=== PATIENT | male | born 1980 | race Caucasian/White ===

== ENCOUNTER 2018-11-06 17:38 | Emergency (ER) | payer BC ==
[2018-11-06] MEDS ORDERED: NA CHLORIDE 0.9% 1,000 ML ONE ×2 (18:16→19:18)
[2018-11-06 18:33] LABS: Absolute Lymphocytes (CBC) 1.5 K/uL (0.7-4.9); Basophils % 0.7 % (0-1.3); Eosinophils % 0.2 % (0-4.4); Hematocrit 51.3 % (39.6-49.0); Lymphocytes % 16.8 % (15.3-44.8); MPV 8.9 fL (7.6-11.3); Monocytes % 5.1 % (3.3-12.3); RBC Red Blood Cell Count 5.63 M/uL (4.33-5.43)
--- NOTE | 2018-11-06 18:39 | RAD REPORT ---
EXAM DESCRIPTION: CT - Stone Protocol - 11/06/2018 6:21 pm CLINICAL HISTORY: Left-sided flank pain COMPARISON: None. TECHNIQUE: Axial 5 mm thick images were obtained without oral or IV contrast. The [id number] span s the entirety of the system including uppermost abdomen and lung bases. All CT scans are performed using dose optimization technique as appropriate and may include automated exposure control or mA/KV adjustment according to patient size. FINDINGS: Mild left-sided hydronephrosis is present secondary to a 7 mm UPJ calculus. On a KUB proje ction the stone is in proximity to the left transverse process at L3. More distally the left ureter i s decompressed with no additional stone. Patient has a 4 mm calcification lower pole calyx on the lef t. Patient has a 5 mm calcification lower pole calyx on the right. There is a 2 centimeter round low- attenuation mass in the lateral mid right kidney that is most likely a cyst but not fully characteriz ed on noncontrast study. No suspicious renal masses. Isodense masses and pyelonephritis are not excluded on a stone protocol CT scan. No urinary bladder suspicious finding. No significant adrenal finding. Imaged portions of the liver, spleen and pancreas show no suspicious findings on non-contrast imaging . No gallbladder or biliary tree abnormality identified. No suspicious bowel findings. No hernia, mass or bulky lymphadenopathy noted. No free air, free fluid or inflammatory stranding. No significant bony abnormality. IMPRESSION: Mild left-sided hydronephrosis of the pelvis and calices secondary to a 7 mm UPJ calculu s. On a KUB projection the obstructing stone is in proximity to the L3 left transverse process. Bilateral lower pole nonobstructing calyx calculi. Isodense masses and pyelonephritis are not excluded on stone protocol technique.
[2018-11-06 18:46] LABS: Albumin 4.4 g/dL (3.4-5.0); Bilirubin Direct 0.2 mg/dL (0-0.2); Bilirubin Total 1.4 mg/dL (0.2-1.0); Potassium 4.4 mmol/L (3.5-5.1); Protein, Total 8.2 g/dL (6.4-8.2)
[2018-11-06] MEDS ORDERED: CIPROFLOXACIN HCL 500 MG TAB ONE (19:18)
[2018-11-06] MEDS ORDERED: TAMSULOSIN 0.4 MG SR CAP ONE (19:18)
[2018-11-06] MEDS ORDERED: KETOROLAC 30 MG/ML INJ ONE (19:18)
[2018-11-06 19:39] LABS: Urine Yeast MANY (NONE SEEN)
[2018-11-06 19:40] LABS: Urine RBC >50 /HPF (NONE SEEN)
[2018-11-06 19:41] LABS: Urine Bacteria <20 /HPF (NONE SEEN); Urine Culture Reflex Order REFLEXED
--- NOTE | 2018-11-06 20:04 | EDPHYS ---
Physician Documentation [facility] Name: Alban Bundy Age: 38 yrs Sex: Male : 1980 Arrival Date: 11/06/2018 Time: 17:40 Bed 18 Private MD: ED Physician Phillip Masters HPI: 11/06 17:56 This 38 yrs old Male presents to ER via EMS with complaints of Left Flank pm1 Pain. 17:56 The patient complains of pain in the left low back. The pain radiates to the left pm1 testicle. Onset: The symptoms/episode began/occurred 1 hour(s) ago. Modifying factors: The symptoms are alleviated by nothing. the symptoms are aggravated by nothing. Associated signs and symptoms: Pertinent positives: nausea resolved, Pertinent negatives: fever, urinary frequency. Severity of pain: in the emergency department the pain has resolved and did so just prior to arrival. The patient has experienced similar episodes in the past, a few times, history of kidney stones in the past . The patient has not recently seen a physician. Historical: - Allergies: 17:45 No Known Allergies; em - Home Meds: 17:45 Cialis oral oral [Active]; em - PMHx: 17:45 Kidney stones; em - Immunization history:: Adult Immunizations up to date. - Social history:: Smoking status: Patient/guardian denies using tobacco. - Ebola Screening: : Patient negative for fever greater than or equal to 101.5 degrees Fahrenheit, and additional compatible Ebola Virus Disease symptoms Patient denies exposure to infectious person Patient denies travel to an Ebola-affected area in the 21 days before illness onset No symptoms or risks identified at this time. ROS: 17:56 Constitutional: Negative for fever, chills, and weight loss, Eyes: Negative for injury, pm1 pain, redness, and discharge, ENT: Negative for injury, pain, and discharge, Neck: Negative for injury, pain, and swelling, Cardiovascular: Negative for chest pain, palpitations, and edema, Respiratory: Negative for shortness of breath, cough, wheezing, and pleuritic chest pain. 17:56 : Negative for injury, bleeding, discharge, and swelling, MS/Extremity: Negative for injury and deformity, Skin: Negative for injury, rash, and discoloration, Neuro: Negative for headache, weakness, numbness, tingling, and seizure. 17:56 Abdomen/GI: Positive for nausea and vomiting, Negative for abdominal pain, diarrhea, constipation. 17:56 Back: Positive for flank pain, on the left. Exam: 17:56 Constitutional: This is a well developed, well nourished patient who is awake, alert, pm1 and in no acute distress. Head/Face: Normocephalic, atraumatic. Neck: Trachea midline, no thyromegaly or masses palpated, and no cervical lymphadenopathy. Supple, full range of motion without nuchal rigidity, or vertebral point tenderness. No Meningismus. Chest/axilla: Normal chest wall appearance and motion. Nontender with no deformity. No lesions are appreciated. Cardiovascular: Regular rate and rhythm with a normal S1 and S2. No gallops, murmurs, or rubs. Normal PMI, no JVD. No pulse deficits. Respiratory: Lungs have equal breath sounds bilaterally, clear to auscultation and percussion. No rales, rhonchi or wheezes noted. No increased work of breathing, no retractions or nasal flaring. Abdomen/GI: Soft, non-tender, with normal bowel sounds. No distension or tympany. No guarding or rebound. No evidence of tenderness throughout. Back: No spinal tenderness. No costovertebral tenderness. Full range of motion. Skin: Warm, dry with normal turgor. Normal color with no rashes, no lesions, and no evidence of cellulitis. MS/ Extremity: Pulses equal, no cyanosis. Neurovascular intact. Full, normal range of motion. 17:56 Neuro: Orientation: is normal, Motor: is normal, Sensation: is normal, no obvious gross deficits, Gait: is steady, at a normal pace, without difficulty. Vital Signs: 17:41 BP 130 / 95; Pulse 79; Resp 16; Temp 98.5(O); Pulse Ox 100% on R/A; Weight 72.57 kg; em Height 5 ft. 10 in. (177.80 cm); Pain 8/10; 18:43 BP 120 / 77; Pulse 92; Resp 18; Pulse Ox 98% on R/A; Pain 0/10; em 17:41 Body Mass Index 22.96 (72.57 kg, 177.80 cm) em MDM: 17:41 Patient medically screened. pm1 18:55 Data reviewed: vital signs. Data interpreted: Pulse oximetry: on room air is 98 %. pm1 Interpretation: normal. 19:27 Counseling: I had a detailed discussion with the patient and/or guardian regarding: the pm1 historical points, exam findings, and any diagnostic results supporting the discharge/admit diagnosis, lab results, radiology results, the need for outpatient follow up, for definitive care, a urologist, to return to the emergency department if symptoms worsen or persist or if there are any questions or concerns that arise at home. 20:12 ED course: Consult with Dr. Chapa regarding urine micro. Patient without pain with pm1 urinating or discharge. Recommended treat yeast infection with Diflucan 150 mg PO now and 150 mg PO tomorrow. Patient counseled on diagnosis and given prescription of Diflucan 150 mg to take at 2000 tomorrow. 20:15 ED course: Patient offered admission but patient has plans to go on off shore fishing pm1 trip tomorrow. Going 30 miles out. Patient wants medications for pain as needed for tomorrow. Patient currently comfortable, without any pain, no vomiting, and drinking PO without any issues . 11/06 17:56 Order name: Basic Metabolic Panel; Complete Time: 18:55 pm1 11/06 17:56 Order name: CBC with Diff; Complete Time: 18:58 pm1 11/06 17:56 Order name: Creatinine for Radiology; Complete Time: 18:55 pm1 11/06 17:56 Order name: Hepatic Function; Complete Time: 18:55 pm1 11/06 17:56 Order name: Lipase; Complete Time: 18:55 pm1 11/06 17:56 Order name: Urine Microscopic Only; Complete Time: 20:09 pm1 11/06 17:59 Order name: CT Stone Protocol; Complete Time: 18:44 pm1 11/06 19:28 Order name: Urine Dipstick--Ancillary (enter results); Complete Time: 20:09 cm6 11/06 20:01 Order name: Urine Culture [facility] 11/06 17:56 Order name: IV Saline Lock; Complete Time: 18:10 pm1 11/06 17:56 Order name: Labs collected and sent; Complete Time: 18:17 pm1 11/06 17:56 Order name: Urine Dipstick-Ancillary (obtain specimen); Complete Time: 19:34 pm1 Administered Medications: 18:19 Drug: NS 0.9% 1000 ml Route: IV; Rate: 1000 ml; Site: left antecubital; em 20:38 Follow up: IV Status: Completed infusion; IV Intake: 1000ml ak1 19:10 Drug: TORadol 30 mg Route: IVP; Site: left antecubital; ak1 19:34 Follow up: Response: No adverse reaction ak1 19:10 Drug: Flomax 0.4 mg Route: PO; ak1 19:34 Follow up: Response: No adverse reaction ak1 19:10 Drug: Cipro 500 mg Route: PO; ak1 19:33 Follow up: Response: No adverse reaction ak1 19:26 Drug: NS 0.9% 1000 ml Route: IV; Rate: 1000 ml; Site: left antecubital; ak1 20:38 Follow up: IV Status: Completed infusion; IV Intake: 1000ml ak1 20:39 Drug: DiFLUcan 150 mg Route: PO; ak1 20:39 Follow up: Response: No adverse reaction ak1 Disposition: 11/06/18 19:28 Discharged to Home. Impression: Calculus of kidney and ureter. - Condition is Stable. - Discharge Instructions: Kidney Stones. - Prescriptions for Tylenol- Codeine #3 300-30 mg Oral Tablet - take 2 tablet by ORAL route every 6 hours As needed; 30 tablet. Zofran 4 mg Oral Tablet - take 1 tablet by ORAL route every 12 hours As needed; 20 tablet. Flomax 0.4 mg Oral Capsule, Sust. Release 24 hr - take 1 capsule by ORAL route once daily 1/2 hour following the same meal each day; 30 capsule. Cipro 500 mg Oral Tablet - take 1 tablet by ORAL route every 12 hours for 7 days; 14 tablet. Fluconazole 150 mg Oral Tablet - take 1 tablet by ORAL route once daily; 1 tablet. - Medication Reconciliation Form, Thank You Letter, Antibiotic Education, Prescription Opioid Use form. - Follow up: Emergency Department; When: As needed; Reason: Worsening of condition. Follow up: Private Physician; When: 2 - 3 days; Reason: Recheck today's complaints, Continuance of care, Re-evaluation by your physician. - Problem is new. - Symptoms have improved. Addendum: 11/11/2018 16:39 Co-signature as Attending Physician, Phillip Masters MD I agree with the assessment and c bansal plan of care. Signatures: Dispatcher [employer] Phillip Plata MD MD cha Munoz, Edgar, TRACK LAYER TRACK LAYER Sarai Torrez RN RN ak1 Yaw Prieto, LEAD POURER LEAD POURER pm1 Corrections: (The following items were deleted from the chart) 11/06 20:41 19:28 11/06/2018 19:28 Discharged to Home. Impression: Calculus of kidney and ureter. ak1 Condition is Stable. Forms are Medication Reconciliation Form, Thank You Letter, Antibiotic Education, Prescription Opioid Use. Follow up: Emergency Department; When: As needed; Reason: Worsening of condition. Follow up: Private Physician; When: 2 - 3 days; Reason: Recheck today's complaints, Continuance of care, Re-evaluation by your physician. Problem is new. Symptoms have improved. pm1
--- NOTE | 2018-11-06 20:04 | ER ---
Nurse's Notes [facility] Name: Alban Bundy Age: 38 yrs Sex: Male : 1980 Arrival Date: 11/06/2018 Time: 17:40 Bed 18 Private MD: Diagnosis: Calculus of kidney and ureter Presentation: 11/06 17:42 Presenting complaint: EMS states: left sided flank pain that started about 1 hour ago em while on a boat for 4-5 hours, states drinking water, + N/V, denies fever, hx of kidney stones but does not feel like this, denies belly pain. Transition of care: patient was not received from another setting of care. Onset of symptoms was November 06, 2018. Risk Assessment: Do you want to hurt yourself or someone else? Patient reports no desire to harm self or others. Initial Sepsis Screen: Does the patient meet any 2 criteria? No. Patient's initial sepsis screen is negative. Does the patient have a suspected source of infection? Yes: Dysuria/Frequency/Urgency/UTI. Care prior to arrival: None. 17:42 Method Of Arrival: EMS: [facility] em 17:50 Acuity: TESS 3 iw Historical: - Allergies: 17:45 No Known Allergies; em - Home Meds: 17:45 Cialis oral oral [Active]; em - PMHx: 17:45 Kidney stones; em - Immunization history:: Adult Immunizations up to date. - Social history:: Smoking status: Patient/guardian denies using tobacco. - Ebola Screening: : Patient negative for fever greater than or equal to 101.5 degrees Fahrenheit, and additional compatible Ebola Virus Disease symptoms Patient denies exposure to infectious person Patient denies travel to an Ebola-affected area in the 21 days before illness onset No symptoms or risks identified at this time. Screenin:46 Abuse screen: Denies threats or abuse. Nutritional screening: No deficits noted. em Tuberculosis screening: No symptoms or risk factors identified. Fall Risk None identified. Assessment: 17:41 General: Appears in no apparent distress. comfortable, Behavior is calm, cooperative, em Denies fever. Pain: Complains of pain in left mid back Pain currently is 8 out of 10 on a pain scale. Neuro: Level of Consciousness is awake, alert, obeys commands, Oriented to person, place, time, situation. Cardiovascular: Capillary refill < 3 seconds Patient's skin is warm and dry. Respiratory: Airway is patent Respiratory effort is even, unlabored, Respiratory pattern is regular, symmetrical. GI: Abdomen is flat, Bowel sounds present X 4 quads. Abd is soft and non tender X 4 quads. Reports nausea, vomiting, Patient currently denies diarrhea. : Denies burning with urination, pain. Derm: Skin is intact, is healthy with good turgor, Skin is pink, warm \T\ dry. Musculoskeletal: Capillary refill < 3 seconds, Range of motion: intact in all extremities. 18:00 Reassessment: Patient appears in no apparent distress at this time. I agree with above iw assessment by Alex Rivera LVN. 18:42 Reassessment: Patient appears in no apparent distress at this time. Patient and/or em family updated on plan of care and expected duration. Pain level reassessed. Patient is alert, oriented x 3, equal unlabored respirations, skin warm/dry/pink. rates pain 0/10 Patient denies pain at this time. Patient states feeling better. 19:11 General: Appears in no apparent distress. comfortable, Behavior is calm, cooperative. ak1 Pain: Denies pain. Neuro: No deficits noted. Cardiovascular: No deficits noted. Respiratory: No deficits noted. GI: No signs and/or symptoms were reported involving the gastrointestinal system. : Denies burning with urination. EENT: No signs and/or symptoms were reported regarding the EENT system. Derm: No signs and/or symptoms reported regarding the dermatologic system. Musculoskeletal: No signs and/or symptoms reported regarding the musculoskeletal system. Vital Signs: 17:41 BP 130 / 95; Pulse 79; Resp 16; Temp 98.5(O); Pulse Ox 100% on R/A; Weight 72.57 kg; em Height 5 ft. 10 in. (177.80 cm); Pain 8/10; 18:43 BP 120 / 77; Pulse 92; Resp 18; Pulse Ox 98% on R/A; Pain 0/10; em 17:41 Body Mass Index 22.96 (72.57 kg, 177.80 cm) em ED Course: 17:40 Patient arrived in ED. em 17:41 Yaw Prieto NP is PHCP. pm1 17:41 Phillip Masters MD is Attending Physician. pm1 17:41 Arm band placed on. em 17:41 Patient has correct armband on for positive identification. Bed in low position. Call em light in reach. 17:51 Triage completed. iw 17:57 Alex Rivera LVN is Primary Nurse. em 18:09 Inserted saline lock: 20 gauge in left antecubital area, using aseptic technique. lt1 Missed attempt(s): 20 gauge in right antecubital area. 18:21 CT Stone Protocol In Process Unspecified. EDMS 19:11 No provider procedures requiring assistance completed. ak1 20:40 IV discontinued, intact, bleeding controlled, No redness/swelling at site. Pressure ak1 dressing applied. Administered Medications: 18:19 Drug: NS 0.9% 1000 ml Route: IV; Rate: 1000 ml; Site: left antecubital; em 20:38 Follow up: IV Status: Completed infusion; IV Intake: 1000ml ak1 19:10 Drug: TORadol 30 mg Route: IVP; Site: left antecubital; ak1 19:34 Follow up: Response: No adverse reaction ak1 19:10 Drug: Flomax 0.4 mg Route: PO; ak1 19:34 Follow up: Response: No adverse reaction ak1 19:10 Drug: Cipro 500 mg Route: PO; ak1 19:33 Follow up: Response: No adverse reaction ak1 19:26 Drug: NS 0.9% 1000 ml Route: IV; Rate: 1000 ml; Site: left antecubital; ak1 20:38 Follow up: IV Status: Completed infusion; IV Intake: 1000ml ak1 20:39 Drug: DiFLUcan 150 mg Route: PO; ak1 20:39 Follow up: Response: No adverse reaction ak1 Intake: 20:38 IV: 1000ml; Total: 1000ml. ak1 20:38 IV: 1000ml; Total: 2000ml. ak1 Outcome: 19:28 Discharge ordered by . pm1 19:45 Condition: stable ak1 19:45 Discharge instructions given to patient, family, Instructed on discharge instructions, follow up and referral plans. no drinking with medication, no driving heavy equipment, medication usage, Demonstrated understanding of instructions, follow-up care, medications, Prescriptions given X 4. 20:40 Discharged to home ambulatory, with family, pt discharged after completion of IV ak1 fluids. 20:41 Patient left the ED. ak1 Signatures: Dispatcher [employer] EDMS Alex Rivera, FILLER BLENDER FILLER BLENDER em Suzy Crocker RN RN iw Sarai Schmidt RN RN ak1 Yaw Prieto, [employer] pm1 Bridget Sprague lt1 Corrections: (The following items were deleted from the chart) 17:46 17:41 BP 130 / 95; Pulse 79bpm; Resp 16bpm; Pulse Ox 100%; Temp 98.5F Oral; lt1 em
[2018-11-06 20:08] LABS: Urine Blood 3+ (NEG); Urine Glucose NEGATIVE (NEG); Urine Protein 2+ (NEG); Urine Specific Gravity 1.025 (1.005-1.030); Urine pH 6.5 (5.0-7.0)
[2018-11-06] MEDS ORDERED: FLUCONAZOLE 100 MG TAB ONE (20:49)
== END 2018-11-06 20:41 | disposition home or self-care (01) ==
LOC: ER 17:38
DX: N20.2 Calculus of kidney with calculus of ureter (principal)
CPT/HCPCS: 36415; 74176; 76377; 80048; 80076; 81003; 81015; 83690; 85025; 87086; 87088; 96361; 96374; 99284; J7030

== ENCOUNTER 2018-11-14 16:29 | Observation (INO) | payer BC ==
[2018-11-14] MEDS ORDERED: NA CHLORIDE 0.9% 1,000 ML ONE (16:47)
[2018-11-14] MEDS ORDERED: KETOROLAC 30 MG/ML INJ ONE (16:47)
[2018-11-14] MEDS ORDERED: ONDANSETRON 4 MG/2 ML VIAL ONE (16:47)
[2018-11-14 16:58] LABS: Absolute Lymphocytes (CBC) 1.8 K/uL (0.7-4.9); Basophils % 0.5 % (0-1.3); Eosinophils % 0.3 % (0-4.4); Hematocrit 46.5 % (39.6-49.0); Lymphocytes % 17.2 % (15.3-44.8); MPV 8.4 fL (7.6-11.3); Monocytes % 6.9 % (3.3-12.3); RBC Red Blood Cell Count 5.17 M/uL (4.33-5.43)
[2018-11-14 17:11] LABS: Albumin 4.2 g/dL (3.4-5.0); Bilirubin Direct 0.3 mg/dL (0-0.2); Bilirubin Total 1.6 mg/dL (0.2-1.0); Protein, Total 7.8 g/dL (6.4-8.2)
--- NOTE | 2018-11-14 17:20 | RAD REPORT ---
EXAM DESCRIPTION: RAD - Abdomen 1 View (KUB) - 11/14/2018 5:01 pm CLINICAL HISTORY: left flank pain Pain COMPARISON: Stone Protocol dated 11/06/2018 FINDINGS: The bowel gas pattern is non-obstructive. No evidence of free air or pneumatosis. Small ca lcification is seen projecting over the left transverse process of L4, likely representing inferior m igration of the previously noted left UPJ stone. Small stone is also seen in the inferior aspect of t he right kidney.
--- NOTE | 2018-11-14 18:09 | RAD REPORT ---
EXAM DESCRIPTION: US - Renal Ultrasound-Limited - 11/14/2018 5:52 pm CLINICAL HISTORY: left flank pain COMPARISON: <Comparisons> FINDINGS: Left kidney is normal in size, shape and echotexture. The right kidney was not imaged. The left kidney measures 12.1 x 6.5 x 5.9 cm. No hydronephrosis, focal mass or perinephric fluid. The urinary bladder is incompletely distended without gross abnormality seen. IMPRESSION: Negative limited study.
[2018-11-14] MEDS ORDERED: FENTANYL CITR 100 MCG/2 ML ONE (18:32)
[2018-11-14] MEDS ORDERED: MAGNESIUM SULFATE 1 gm IVPB 1 GM/100 ML BAG IV ONE (18:32)
[2018-11-14 18:42] LABS: Urine RBC 20-50 /HPF (NONE SEEN)
[2018-11-14 18:43] LABS: Calcium Oxalate Crystals- Ur PRESENT (NONE SEEN); Urine Bacteria <20 /HPF (NONE SEEN); Urine Culture Reflex Order NOT NEEDED
--- NOTE | 2018-11-14 18:48 | ER ---
Nurse's Notes [facility] Name: Alban Bundy Age: 38 yrs Sex: Male : 1980 Arrival Date: 11/14/2018 Time: 16:25 Bed 8 Private MD: Diagnosis: Calculus of ureter-left;Outpatient treatment failure Presentation: 11/14 16:25 Presenting complaint: Patient states: DX with kidney stones last week and has followed aj up with urology. Reports pain is unbearable despite Tylenol #3 and Hydrocodone.RX. Transition of care: patient was not received from another setting of care. Onset of symptoms was November 02, 2018. Risk Assessment: Do you want to hurt yourself or someone else? Patient reports no desire to harm self or others. Initial Sepsis Screen: Does the patient meet any 2 criteria? No. Patient's initial sepsis screen is negative. Does the patient have a suspected source of infection? No. Patient's initial sepsis screen is negative. Care prior to arrival: None. 16:25 Method Of Arrival: EMS: [facility] 16:25 Acuity: TESS 3 aj Triage Assessment: 16:30 General: Appears in no apparent distress. uncomfortable, Behavior is calm, cooperative, aj appropriate for age. Pain: Complains of pain in anterior aspect of right lateral abdomen and posterior aspect of right lateral abdomen. Neuro: Level of Consciousness is awake, alert, obeys commands, Oriented to person, place, time, situation, Appropriate for age. Respiratory: Airway is patent Trachea midline Respiratory effort is even, unlabored, Respiratory pattern is regular, symmetrical. GI: Abdomen is flat. : Reports pain in right flank(s). Derm: Skin is intact, is healthy with good turgor, Skin is pink, warm \T\ dry. normal. Historical: - Allergies: 16:30 No Known Allergies; aj - Home Meds: 16:30 Cialis Oral [Active]; Tylenol #3 Oral [Active]; Hydrocodone-Acetaminophen Oral aj [Active]; Flomax Oral [Active]; Cipro Oral [Active]; - PMHx: 16:30 Kidney stones; Erectile Dysfunction; aj - Immunization history:: Adult Immunizations up to date. - Social history:: Smoking status: Patient/guardian denies using tobacco. - Ebola Screening: : Patient negative for fever greater than or equal to 101.5 degrees Fahrenheit, and additional compatible Ebola Virus Disease symptoms Patient denies exposure to infectious person Patient denies travel to an Ebola-affected area in the 21 days before illness onset No symptoms or risks identified at this time. Screenin:33 Abuse screen: Denies threats or abuse. Nutritional screening: No deficits noted. ae4 Tuberculosis screening: No symptoms or risk factors identified. Fall Risk None identified. Assessment: 16:30 General: Appears uncomfortable, Behavior is cooperative, agitated, anxious, restless. ae4 Pain: Complains of pain in left low back and left mid back Pain radiates to left femoral area, left inguinal area and left iliac crest Noted to be grimacing, moaning. Neuro: Level of Consciousness is awake, alert, obeys commands, Oriented to person, place, time, situation. Cardiovascular: Heart tones S1 S2 present Patient's skin is warm and dry. Respiratory: Airway is patent Respiratory effort is even, unlabored, Respiratory pattern is regular, symmetrical, Breath sounds are clear bilaterally. GI: Bowel sounds Abd is soft Abdomen is tender to palpation in left lower quadrant. : Reports cramping, in left flank(s) lower quadrant(s) Left pelvic pain. EENT: No signs and/or symptoms were reported regarding the EENT system. Derm: Skin is pink, warm \T\ dry. Musculoskeletal: No signs and/or symptoms reported regarding the musculoskeletal system. 17:32 Reassessment: Patient appears in no apparent distress at this time. Patient and/or ae4 family updated on plan of care and expected duration. Pain level reassessed. Patient states feeling better. 19:23 Reassessment: Patient appears in no apparent distress at this time. Patient and/or jd3 family updated on plan of care and expected duration. Pain level reassessed. Patient is alert, oriented x 3, equal unlabored respirations, skin warm/dry/pink. Patient states feeling better. General: Appears in no apparent distress. comfortable, Behavior is calm, cooperative, appropriate for age. Pain: Complains of pain in low back area Quality of pain is described as aching. Neuro: Level of Consciousness is awake, alert, obeys commands, Oriented to person, place, time, situation. Cardiovascular: Capillary refill < 3 seconds Patient's skin is warm and dry. Respiratory: Airway is patent Respiratory effort is even, unlabored, Respiratory pattern is regular, symmetrical. GI: Abdomen is flat, non-distended, Patient currently denies diarrhea, nausea, vomiting. : No signs and/or symptoms were reported regarding the genitourinary system. EENT: No signs and/or symptoms were reported regarding the EENT system. Derm: Skin is intact, Skin is dry, Skin is normal, Skin temperature is warm. Musculoskeletal: Circulation, motion, and sensation intact. Range of motion: intact in all extremities. 20:36 Reassessment: Patient appears in no apparent distress at this time. Patient and/or jd3 family updated on plan of care and expected duration. Pain level reassessed. Patient is alert, oriented x 3, equal unlabored respirations, skin warm/dry/pink. awaiting bed placement. Patient denies pain at this time. Vital Signs: 16:30 BP 133 / 96; Pulse 92; Resp 17; Temp 98.0; Pulse Ox 98% on R/A; Weight 72.57 kg; Height aj 5 ft. 10 in. (177.80 cm); 17:42 BP 121 / 75; Pulse 108; Resp 18; Pulse Ox 100% on R/A; ae4 18:14 BP 119 / 70; Pulse 104; Resp 17; Pulse Ox 99% on R/A; ae4 19:25 BP 132 / 90; Pulse 103; Resp 20 S; Pulse Ox 98% on R/A; Pain 3/10; jd3 20:35 BP 144 / 93; Pulse 104; Resp 18 S; Pulse Ox 98% on R/A; Pain 0/10; jd3 16:30 Body Mass Index 22.96 (72.57 kg, 177.80 cm) ED Course: 16:25 Patient arrived in ED. aj 16:25 Tru Marquez MD is Attending Physician. rn 16:26 Phillip Hennessy PA is PHCP. cp 16:27 Triage completed. aj 16:29 Yves Rosenberg, DINO is Primary Nurse. ae4 16:30 Arm band placed on left wrist. Patient placed in an exam room, on a stretcher, on pulse aj oximetry. 16:30 Bed in low position. Call light in reach. Side rails up X 1. Adult w/ patient. Pulse ox ae4 on. NIBP on. 16:42 Initial lab(s) drawn, by me, sent to lab. Inserted saline lock: 20 gauge in left lt1 antecubital area, using aseptic technique. 17:02 XRAY Abdomen 1 View (KUB) In Process Unspecified. EDMS 17:52 US Rp Exam Limited In Process Unspecified. EDMS 17:52 Ultrasound completed. Patient tolerated well. sg3 18:45 Jessica Hopkins MD is Hospitalizing Provider. cp 18:46 Hospitalizing Provider role handed off by Jessica Hopkins MD cp 18:46 Mary Tarango MD is Hospitalizing Provider. cp 21:17 No provider procedures requiring assistance completed. Patient admitted, IV remains in jd3 place. Administered Medications: 16:31 Drug: Zofran 4 mg Route: IVP; Site: left antecubital; ae4 18:11 Follow up: Response: Pain is decreased ae4 18:11 Follow up: Response: Nausea is decreased ae4 16:31 Drug: NS 0.9% 1000 ml Route: IV; Rate: 1 bolus; Site: left antecubital; ae4 19:00 Follow up: Response: No adverse reaction; IV Status: Completed infusion; IV Intake: jd3 1000ml 16:41 Drug: TORadol 30 mg Route: IVP; Site: left antecubital; ae4 18:10 Follow up: Response: Pain is decreased ae4 18:21 Drug: fentaNYL (PF) 25 mcg Route: IVP; Site: left antecubital; ae4 19:05 Follow up: Response: Pain is decreased ae4 18:30 Drug: Magnesium Sulfate 1 grams Route: IVPB; Infused Over: 1 hrs; Site: left ae4 antecubital; 20:36 Follow up: Response: No adverse reaction; IV Status: Completed infusion jd3 Intake: 19:00 IV: 1000ml; Total: 1000ml. jd3 Outcome: 18:47 Decision to Hospitalize by Provider. cp 21:17 Admitted to Med/surg accompanied by tech, via wheelchair, room 424, with chart, Report jd3 called to [facility] 21:17 Condition: stable 21:17 Instructed on the need for admit, Demonstrated understanding of instructions. 21:18 Patient left the ED. jd3 Signatures: Dispatcher [employer] Kaylah Hou RN RN aj Nieto, Roman, MD MD rn Page, Corey PA PA cp Shirley, Travis, RN RN jd3 Celena Bynum sg3 Bridget Sprague lt1 Yves Rosenberg RN RN ae4
--- NOTE | 2018-11-14 18:48 | EDPHYS ---
Physician Documentation [facility] Name: Alban Bundy Age: 38 yrs Sex: Male : 1980 Arrival Date: 11/14/2018 Time: 16:25 Bed 8 Private MD: ED Physician Tru Marquez HPI: 11/14 16:35 This 38 yrs old Male presents to ER via EMS with complaints of Possible cp Kidney Stone. 16:35 The patient complains of pain in the left. The patient complains of pain in the left cp flank. The pain radiates to the abdomen. Onset: The symptoms/episode began/occurred and became worse today. Associated signs and symptoms: Pertinent positives: nausea, vomiting, Pertinent negatives: diarrhea, fever. 16:35 The patient has been recently seen at the [facility] Emergency cp Department, for similar complaints diagnosed with left kidney stone, 11-06-2018. Patient reports he had f/u appt with DR Will who scheduled him for stent placement next week. Historical: - Allergies: 16:30 No Known Allergies; aj - Home Meds: 16:30 Cialis Oral [Active]; Tylenol #3 Oral [Active]; Hydrocodone-Acetaminophen Oral aj [Active]; Flomax Oral [Active]; Cipro Oral [Active]; - PMHx: 16:30 Kidney stones; Erectile Dysfunction; aj - Immunization history:: Adult Immunizations up to date. - Social history:: Smoking status: Patient/guardian denies using tobacco. - Ebola Screening: : Patient negative for fever greater than or equal to 101.5 degrees Fahrenheit, and additional compatible Ebola Virus Disease symptoms Patient denies exposure to infectious person Patient denies travel to an Ebola-affected area in the 21 days before illness onset No symptoms or risks identified at this time. ROS: 16:45 Constitutional: Negative for body aches, chills, fever, poor PO intake. cp 16:45 Eyes: Negative for injury, pain, redness, and discharge. cp 16:45 ENT: Negative for drainage from ear(s), ear pain, sore throat, difficulty swallowing, difficulty handling secretions. 16:45 Cardiovascular: Negative for chest pain, palpitations. 16:45 Respiratory: Negative for cough, shortness of breath, wheezing. 16:45 Abdomen/GI: Positive for abdominal pain, nausea and vomiting, Negative for diarrhea, constipation, anorexia, dysphagia, black/tarry stool, rectal bleeding. 16:45 Back: Positive for flank pain, on the left. 16:45 Skin: Negative for cellulitis, rash. 16:45 Neuro: Negative for altered mental status, dizziness, headache, weakness. 16:45 All other systems are negative. Exam: 16:55 Constitutional: The patient appears in no acute distress, alert, awake, cp non-diaphoretic, non-toxic, well developed, well nourished, uncomfortable. 16:55 Head/Face: Normocephalic, atraumatic. cp 16:55 Eyes: Periorbital structures: appear normal, Conjunctiva: normal, no exudate, no injection, Sclera: no appreciated abnormality, Lids and lashes: appear normal, bilaterally. 16:55 ENT: External ear(s): are unremarkable, Nose: is normal, Mouth: Lips: moist, Oral mucosa: pink and intact, moist, Posterior pharynx: is normal, airway is patent, no erythema, no exudate. 16:55 Neck: ROM/movement: is normal, is supple, without pain, no range of motions limitations, no nuchal rigidity. 16:55 Chest/axilla: Inspection: normal, Palpation: is normal, no crepitus, no tenderness. 16:55 Cardiovascular: Rate: normal, Rhythm: regular, Edema: is not appreciated, JVD: is not appreciated. 16:55 Respiratory: the patient does not display signs of respiratory distress, Respirations: normal, no use of accessory muscles, no retractions, no splinting, no tachypnea, labored breathing, is not present, Breath sounds: are clear throughout, no decreased breath sounds, no stridor, no wheezing. 16:55 Abdomen/GI: Inspection: abdomen appears normal, Bowel sounds: active, all quadrants, Palpation: soft, in all quadrants, severe abdominal tenderness, in the anterior aspect of left lateral abdomen, posterior aspect of left lateral abdomen, left upper quadrant and left lower quadrant, rebound tenderness, is not appreciated, voluntary guarding. 16:55 Skin: no rash present. 16:55 Neuro: Orientation: to person, place \T\ time. Mentation: is normal. Vital Signs: 16:30 BP 133 / 96; Pulse 92; Resp 17; Temp 98.0; Pulse Ox 98% on R/A; Weight 72.57 kg; Height aj 5 ft. 10 in. (177.80 cm); 17:42 BP 121 / 75; Pulse 108; Resp 18; Pulse Ox 100% on R/A; ae4 18:14 BP 119 / 70; Pulse 104; Resp 17; Pulse Ox 99% on R/A; ae4 19:25 BP 132 / 90; Pulse 103; Resp 20 S; Pulse Ox 98% on R/A; Pain 3/10; jd3 20:35 BP 144 / 93; Pulse 104; Resp 18 S; Pulse Ox 98% on R/A; Pain 0/10; jd3 16:30 Body Mass Index 22.96 (72.57 kg, 177.80 cm) aj MDM: 16:25 Patient medically screened. rn 18:10 Data reviewed: vital signs, nurses notes, lab test result(s), radiologic studies, plain cp films, ultrasound, I have discussed the patient's presentation/case with the attending Emergency Department Physician; and as a result, I will admit patient. 18:10 Counseling: I had a detailed discussion with the patient and/or guardian regarding: the cp historical points, exam findings, and any diagnostic results supporting the discharge/admit diagnosis, lab results, radiology results. 18:13 Physician consultation: Willow Will MD was called at 18:13, left message on cp voicemail. 18:20 Physician consultation: Mary Tarango MD regarding admission, to the medical/surgical cp unit. patient's condition. 11/14 16:28 Order name: Basic Metabolic Panel; Complete Time: 17:59 11/14 16:28 Order name: CBC with Diff; Complete Time: 17:59 11/14 18:06 Interpretation: Normal except: WBC 10.7. 11/14 16:28 Order name: Creatinine for Radiology; Complete Time: 17:59 11/14 16:28 Order name: Hepatic Function; Complete Time: 17:59 11/14 18:00 Interpretation: Normal except: ALT 110; ALK 148; BILIT 1.6; BILID 0.3; GLOB 3.6. 11/14 16:28 Order name: Lipase; Complete Time: 17:59 11/14 16:55 Order name: Urine Dipstick--Ancillary (enter results) 11/14 16:36 Order name: XRAY Abdomen 1 View (KUB); Complete Time: 17:59 11/14 18:35 Interpretation: Report reviewed. 11/14 16:37 Order name: US Rp Exam Limited; Complete Time: 18:10 11/14 18:10 Order name: Urine Microscopic Only; Complete Time: 19:25 11/14 19:26 Interpretation: Normal except: URBC 20-50. 11/14 16:28 Order name: IV Saline Lock; Complete Time: 16:41 11/14 16:28 Order name: Labs collected and sent; Complete Time: 16:41 11/14 18:41 Order name: Diet Regular; Complete Time: 18:41 11/14 20:03 Order name: CONS Physician Consult EDMS Administered Medications: 16:31 Drug: Zofran 4 mg Route: IVP; Site: left antecubital; ae4 18:11 Follow up: Response: Pain is decreased ae4 18:11 Follow up: Response: Nausea is decreased ae4 16:31 Drug: NS 0.9% 1000 ml Route: IV; Rate: 1 bolus; Site: left antecubital; ae4 19:00 Follow up: Response: No adverse reaction; IV Status: Completed infusion; IV Intake: jd3 1000ml 16:41 Drug: TORadol 30 mg Route: IVP; Site: left antecubital; ae4 18:10 Follow up: Response: Pain is decreased ae4 18:21 Drug: fentaNYL (PF) 25 mcg Route: IVP; Site: left antecubital; ae4 19:05 Follow up: Response: Pain is decreased ae4 18:30 Drug: Magnesium Sulfate 1 grams Route: IVPB; Infused Over: 1 hrs; Site: left ae4 antecubital; 20:36 Follow up: Response: No adverse reaction; IV Status: Completed infusion jd3 Disposition: 11/15 07:20 Co-signature as Attending Physician, Tru Marquez MD. rn Disposition: 11/14/18 18:47 Hospitalization ordered by Mary Tarango for Observation. Preliminary diagnosis are Calculus of ureter - left, Outpatient treatment failure. - Bed requested for Telemetry/MedSurg (observation). - Status is Observation. jd3 - Condition is Stable. - Problem is an ongoing problem. - Symptoms have improved. UTI on Admission? No Signatures: Dispatcher [employer] EDAZ Kaylah Matson RN RN Tru Hanson MD MD rn Page, Corey, PA PA cp Garcia, Cindy, RN RN Travis Shirley RN RN jd3 Yves Rosenberg RN RN ae4 Corrections: (The following items were deleted from the chart) 11/14 16:47 16:33 Stone Protocol+CT.RAD.BRZ ordered. [facility] 20:41 18:47 Hospitalization Ordered by Mary Tarango MD for Observation. Preliminary cg diagnosis is Calculus of ureter - left; Outpatient treatment failure. Bed requested for Telemetry/MedSurg (observation). Status is Observation. Condition is Stable. Problem is an ongoing problem. Symptoms have improved. UTI on Admission? No. cp 21:18 20:41 11/14/2018 18:47 Hospitalization Ordered by Mary Tarango MD for Observation. jd3 Preliminary diagnosis is Calculus of ureter - left; Outpatient treatment failure. Bed requested for Telemetry/MedSurg (observation). Status is Observation. Condition is Stable. Problem is an ongoing problem. Symptoms have improved. UTI on Admission? No. cg
[2018-11-14] MEDS ORDERED: HYDROMORPHONE HCL 1 MG/ML INJ IV PRN (19:56)
[2018-11-14] MEDS ORDERED: ONDANSETRON 4 MG/2 ML VIAL IV PRN (19:56)
[2018-11-14] MEDS ORDERED: ACETAMINOPHEN 500 MG TAB PO PRN (19:56)
[2018-11-14] MEDS ORDERED: MAGNESIUM HYDROXIDE 8% 30 ML PO PRN (19:56)
[2018-11-14 22:08] LABS: Urine Blood 3+ (NEG); Urine Glucose NEGATIVE (NEG); Urine Protein 2+ (NEG)
[2018-11-14] MEDS: NA CHLORIDE 0.9% 1,000 ML IV SCH (22:47)
[2018-11-14] MEDS: CEFAZOLIN/NS 1gm 1 GM/50 ML BAG IVPB SCH (23:59)
[2018-11-15] MEDS ORDERED: CEFAZOLIN SODIUM 1 GM/VIAL ONE ×2 (00:44→04:42)
[2018-11-15] MEDS ORDERED: NA CHLORIDE 0.9% 50 ML ONE ×2 (00:59→05:58)
[2018-11-15 05:55] LABS: Absolute Lymphocytes (CBC) 2.5 K/uL (0.7-4.9); Basophils % 0.6 % (0-1.3); Eosinophils % 0.8 % (0-4.4); Hematocrit 47.4 % (39.6-49.0); MPV 8.7 fL (7.6-11.3); Monocytes % 11.7 % (3.3-12.3); RBC Red Blood Cell Count 5.27 M/uL (4.33-5.43)
[2018-11-15 05:56] LABS: Albumin 3.6 g/dL (3.4-5.0); Bilirubin Total 0.7 mg/dL (0.2-1.0); Magnesium 2.5 mg/dL (1.8-2.4); Phosphorus 3.6 mg/dL (2.5-4.9); Protein, Total 6.9 g/dL (6.4-8.2)
[2018-11-15] MEDS: CEFAZOLIN/NS 1gm 1 GM/50 ML BAG IVPB SCH (05:57)
[2018-11-15] MEDS: NA CHLORIDE 0.9% 1,000 ML IV SCH (06:00)
[2018-11-15] MEDS ORDERED: Ringers Lactate 1,000 ML IV ONE (06:54)
[2018-11-15] MEDS ORDERED: PROPOFOL 200 MG/20 ML VIAL IV ONE (07:09)
[2018-11-15] MEDS ORDERED: FENTANYL CITR 100 MCG/2 ML ONE (07:09)
[2018-11-15] MEDS ORDERED: LIDOCAINE 1% MPF 5 ML VIAL ONE (07:10)
[2018-11-15] MEDS ORDERED: Mastisol Adhesive Liq ONE (07:29)
[2018-11-15] MEDS ORDERED: dexAMETHasone 10 MG/ML VIAL ONE (07:32)
[2018-11-15] MEDS ORDERED: KETOROLAC 30 MG/ML INJ ONE (07:32)
[2018-11-15] MEDS ORDERED: ONDANSETRON 4 MG/2 ML VIAL ONE ×2 (07:33)
[2018-11-15] MEDS ORDERED: HYDROMORPHONE HCL 1 MG/ML INJ ONE (08:09)
--- NOTE | 2018-11-15 08:23 | RAD REPORT ---
EXAM DESCRIPTION: RAD - Cystography - 11/15/2018 8:05 am CLINICAL HISTORY: ICD N 20.0 FINDINGS: Thirteen fluoroscopic spot images obtained. Fluoroscopy time 2.2 minutes Left ureter was cannulated and contrast administered. Subsequently a left ureteral stent was placed. Pyelosinus extravasation is present. Examination was performed by
--- NOTE | 2018-11-15 11:20 | P.HP ---
Certification for Inpatient Patient admitted to: Observation With expected LOS: <2 Midnights Patient will require the following post-hospital care: None Practitioner: I am a practitioner with admitting privileges, knowledge of patient current condition, hospital course, and medical plan of care. Services: Services provided to patient in accordance with Admission requirements found in Title 42 Section 412.3 of the Code of Federal Regulations Patient History Date of Service: 11/14/18 Reason for admission: obstructive uropathy History of Present Illness: Patient is a 38-year-old gentleman who has dealt with nephrolithiasis in the past. He presents to the emergency room with flank pain which occurred a few days ago. He was given pain medication and informed to hydrate; however, his pain is not improved. He decided to come into the hospital for further treatment. He was admitted on this visit to the ER and we consulted to Urology. Patient will be going to the OR in the morning. Allergies No Known Allergies Allergy (Verified 11/14/18 22:24) Home Medications: Ciprofloxacin HCl [Cipro 500 MG Tablet] 500 mg PO BID 11/15/18 Tamsulosin [Flomax] 0.4 mg PO BEDTIME 11/15/18 - Past Medical/Surgical History Has patient received pneumonia vaccine in the past: No Diabetic: No -: Kidney stones -: Leg Surgery - Family History Father Family History: Reviewed- Non-Contributory - Social History Smoking Status: Former smoker Alcohol use: No CD- Drugs: No Caffeine use: Yes Place of Residence: Home Review of Systems 10-point ROS is otherwise unremarkable Physical Examination - Vital Signs Temperature: 98.1 F Blood Pressure: 138/83 Pulse: 84 Respirations: 14 Pulse Ox (%): 95 - Physical Exam General: Alert, In no apparent distress, Oriented x3 HEENT: Atraumatic, PERRLA, Mucous membr. moist/pink, EOMI, Sclerae nonicteric Neck: Supple, 2+ carotid pulse no bruit, No LAD, Without JVD or thyroid abnormality Respiratory: Clear to auscultation bilaterally, Normal air movement Cardiovascular: Regular rate/rhythm, Normal S1 S2, No murmurs Gastrointestinal: Normal bowel sounds, Soft and benign, Non-distended, Tenderness Musculoskeletal: No clubbing, No swelling, No tenderness Integumentary: No rashes Neurological: Normal gait, Normal speech, Normal strength at 5/5 x4 extr, Normal tone, Sensation intact, Cranial nerves 3-12 intact, Normal affect Lymphatics: No axilla or inguinal lymphadenopathy External genitalia: No edema - Studies Laboratory Data (last 24 hrs) 11/14/18 16:40: Creatinine 1.21 11/14/18 16:40: WBC 10.7 D, Hgb 15.5, Hct 46.5, Plt Count 277 11/14/18 16:40: Sodium 138, Potassium 4.0, BUN 12, Creatinine 1.25, Glucose 115 H, Total Bilirubin 1.6 H, AST 29, ALT 110 H, Alkaline Phosphatase 148 H, Lipase 95 Assessment & Plan - Problems (Diagnosis) (1) Nephrolithiasis Current Visit: Yes Status: Acute (2) Obstructive uropathy Current Visit: Yes Status: Acute - Plan Plan: 1. IV fluids and IV antibiotics 2. Urologic consultation 3. Pain control 4. Repeat abdominal film if pain worsens to rule out perforation 5. GI and DVT prophylaxis Discharge Plan: Home Plan to discharge in: 48 Hours - Advance Directives Does patient have a Living Will: No Does patient have a Durable POA for Healthcare: No - Code Status/Comfort Care Code Status Assessed: Yes Code Status: Full Code Critical Care: No Time Spent Managing PTS Care (In Minutes): 45
--- NOTE | 2018-11-15 11:48 | CON ---
History Of Present Illness: A pleasant 38-year-old male was seen in office for a 7-mm stone that was in the UPJ area. He also has a 4-mm left lower pole stone , a 5-mm right lower pole stone, and a 2-cm right kidney cyst. He was sent home on hydrocodone, however, came back to the emergency room yesterday, complaining of increasing pain. He was admitted overnight for stent placement. Review of Systems: Noncontributory. Current Medications: Hydrocodone 10 mg, Zofran, Flomax, and Cipro. Past Medical History: None. Past Surgical History: Right knee surgery. Family History: None. Immunizations: Up to date. Social History: Tobacco, no smoking. Alcohol, no drinking. Drugs, none. Allergies: NO KNOWN DRUG ALLERGIES Physical Examination: Vital Signs: Show temperature 98.3, 79, 16, bp___. HEENT: Atraumatic, normocephalic. Lungs: Clear. Heart: S1, S2. Abdomen: Soft, nontender. Extremities: Normal range of motion. Assessment: Left renal colic; a 6- to 7-mm stone, left upper ureter. Plan: Cysto, stent, send the patient home today, and follow up in the office in the morning for preop for left ESWL. All the general information, alternatives, and risks were given, and the patient wishes to proceed. There was no coercion. SARAHY/VANNA Voice ID: [id number] Report ID: [id number] GANESH
[2018-11-15] MEDS ORDERED: CEFAZOLIN/SWI 1gm 1 GM/10 ML SYR IVP SCH (12:00)
--- NOTE | 2018-11-15 12:25 | P.SSS ---
Patient History Date of Service: 11/15/18 Reason for admission: obstructive uropathy History of Present Illness: Patient is a 38-year-old gentleman who has dealt with nephrolithiasis in the past. He presents to the emergency room with flank pain which occurred a few days ago. He was given pain medication and informed to hydrate; however, his pain is not improved. He decided to come into the hospital for further treatment. He was admitted on this visit to the ER and we consulted to Urology. Patient will be going to the OR in the morning. Allergies No Known Allergies Allergy (Verified 11/14/18 22:24) Home Medications: Ciprofloxacin HCl [Cipro 500 MG Tablet] 500 mg PO BID 11/15/18 Tamsulosin [Flomax] 0.4 mg PO BEDTIME 11/15/18 - Past Medical/Surgical History Has patient received pneumonia vaccine in the past: No Diabetic: No -: Kidney stones -: Leg Surgery - Social History Smoking Status: Former smoker Alcohol use: No CD- Drugs: No Caffeine use: Yes Place of Residence: Home Review of Systems 10-point ROS is otherwise unremarkable Physical Examination - Vital Signs Temperature: 97.2 F Blood Pressure: 141/82 Pulse: 75 Respirations: 18 Pulse Ox (%): 96 - Physical Exam General: Alert, In no apparent distress HEENT: Atraumatic, PERRLA, Mucous membr. moist/pink, EOMI, Sclerae nonicteric Neck: Supple, 2+ carotid pulse no bruit, No LAD, Without JVD or thyroid abnormality Respiratory: Clear to auscultation bilaterally, Normal air movement Cardiovascular: Regular rate/rhythm, Normal S1 S2 Gastrointestinal: Normal bowel sounds, No tenderness Musculoskeletal: No tenderness Integumentary: No rashes Neurological: Normal gait, Normal speech, Normal strength at 5/5 x4 extr, Normal tone, Normal affect Lymphatics: No axilla or inguinal lymphadenopathy - Studies Laboratory Data (last 24 hrs) 11/14/18 16:40: Creatinine 1.21 11/14/18 16:40: WBC 10.7 D, Hgb 15.5, Hct 46.5, Plt Count 277 11/14/18 16:40: Sodium 138, Potassium 4.0, BUN 12, Creatinine 1.25, Glucose 115 H, Total Bilirubin 1.6 H, AST 29, ALT 110 H, Alkaline Phosphatase 148 H, Lipase 95 - Diagnosis (Problem(s)) (1) Nephrolithiasis Current Visit: Yes Status: Acute (2) Obstructive uropathy Current Visit: Yes Status: Acute Treatment Summary: Patient was in urology here in the hospital had cystoscopy with stent placement. Had no complication during the procedure after the procedure and thus was discharged home under stable condition was asked to follow up with Dr. Will in about 1-2 days post discharge. - Disposition Disposition: ROUTINE DISCHARGE Condition: GOOD Diet: Regular Activity: Ad palomo
--- NOTE | 2018-11-15 13:25 | RAD REPORT ---
EXAM DESCRIPTION: RAD - Abdomen 1 View (KUB) - 11/15/2018 12:40 pm CLINICAL HISTORY: Abdomen pain. FINDINGS: Mild gastric dilatation A left ureteral stent in place Small density overlying the stent at the L3-4 level probably a ureteral calculus
[2018-11-15] MEDS ORDERED: ENOXAPARIN 30 MG/0.3 ML SQ SCH (17:00)
[2018-11-15] MEDS ORDERED: CEFAZOLIN/NS 1gm 1 GM/50 ML BAG IVPB SCH (23:00)
== END 2018-11-15 13:24 | disposition home or self-care (01) ==
LOC: ER 16:29 → ERHOLD 20:44 → 4TH 20:56
PROVIDERS: ADMIT Family Medicine; ATTEND Family Medicine
PROC: 0T778DZ Dilation of Left Ureter with Intraluminal Device, Via Natural or Artificial Opening Endoscopic (ICD-10-PCS; principal; 2018-11-15 07:00)
DX: N20.1 Calculus of ureter (principal); N28.1 Cyst of kidney, acquired; Z87.891 Personal history of nicotine dependence
CPT/HCPCS: 36415; 51600; 74018; 74430; 76775; 80048; 80053; 80076; 81003; 81015; 83690; 83735; 84100; 85025; 96361; 96365; 96366; 96375; 99285; G0378; J0690; J1100; J1170; J1650; J2405; J2704; J3010; J3475; J7030

== ENCOUNTER 2019-02-24 16:21 | Emergency (ER) | payer BC ==
[2019-02-24 17:20] LABS: Absolute Lymphocytes (CBC) 1.9 K/uL (0.7-4.9); Basophils % 1.3 % (0-1.3); Hematocrit 45.6 % (39.6-49.0); Lymphocytes % 37.6 % (15.3-44.8); MPV 8.3 fL (7.6-11.3); RBC Red Blood Cell Count 5.05 M/uL (4.33-5.43)
[2019-02-24 17:31] LABS: Albumin 3.9 g/dL (3.4-5.0); Bilirubin Direct 0.2 mg/dL (0-0.2); Potassium 3.9 mmol/L (3.5-5.1)
--- NOTE | 2019-02-24 18:04 | RAD REPORT ---
EXAM DESCRIPTION: CTAbdomen Pelvis W Contrast - 02/24/2019 5:55 pm CLINICAL HISTORY: Abdominal pain. GI bleeding COMPARISON: No comparisons TECHNIQUE: Biphasic CT imaging of the abdomen and pelvis was performed with 100 ml non-ionic IV cont rast. All CT scans are performed using dose optimization technique as appropriate and may include automated exposure control or mA/KV adjustment according to patient size. FINDINGS: The lung bases are clear. The liver, spleen, pancreas, adrenal glands and left kidney are within normal limits. 14 mm cyst is p resent right kidney. 3 mm stone is present inferior calyx right kidney. No bowel obstruction, free air, free fluid or abscess. Sigmoid diverticulosis is present without dive rticulitis. The appendix is normal. Small fat containing umbilical hernia. No evidence of significant lymphadenopathy. No suspicious bony findings. IMPRESSION: 3 mm stone inferior right kidney. Sigmoid diverticulosis coli without diverticulitis.
--- NOTE | 2019-02-24 18:40 | EDPHYS ---
Physician Documentation [facility] Name: Hakeem Bundy Age: 39 yrs Sex: Male : 1980 Arrival Date: 02/24/2019 Time: 16:22 Bed 24 Private MD: Deric Monsalve ED Physician Ronaldo Cline HPI: 02/24 16:40 This 39 yrs old Male presents to ER via Ambulatory with complaints of Rectal jmm Bleeding. 16:40 The patient presents to the emergency department with bleeding from the rectum/anus, jmm that is moderate. Onset: The symptoms/episode began/occurred acutely, today. Context: the patient has no known special context relating to the rectal area complaint(s). Associate signs and symptoms: Pertinent negatives: abdominal pain, fever. This is a 39 year old male that presents to the ED with complaints of two episode of rectal bleeding. Patient denies fever, denies vomiting, denies abdominal pain. . Historical: - Allergies: 16:38 No Known Allergies; hb - Home Meds: 16:38 Cialis Oral [Active]; Cipro Oral [Active]; Flomax Oral [Active]; hb Hydrocodone-Acetaminophen Oral [Active]; Tylenol #3 Oral [Active]; - PMHx: 16:38 Erectile Dysfunction; Kidney stones; hb - Immunization history:: Adult Immunizations up to date. - Social history:: Smoking status: Patient/guardian denies using tobacco. - Ebola Screening: : No symptoms or risks identified at this time. ROS: 16:40 Constitutional: Negative for fever, chills, and weight loss, Cardiovascular: Negative jmm for chest pain, palpitations, and edema, Respiratory: Negative for shortness of breath, cough, wheezing, and pleuritic chest pain. 16:40 Abdomen/GI: Positive for rectal bleeding. 16:40 All other systems are negative. Exam: 16:40 Constitutional: This is a well developed, well nourished patient who is awake, alert, jmm and in no acute distress. Head/Face: atraumatic. Eyes: EOMI, no conjunctival erythema appreciated ENT: Moist Mucus Membranes Neck: Trachea midline, Supple Chest/axilla: Normal chest wall appearance and motion. Cardiovascular: Regular rate and rhythm. No edema appreciated Respiratory: Normal respirations, no respiratory distress appreciated 16:40 Abdomen/GI: Inspection: abdomen appears normal, Bowel sounds: normal, Palpation: abdomen is soft and non-tender, in all quadrants, Rectal exam: is unremarkable, non tender, no deric blood appreciated, stool appeared light brown. 16:40 Musculoskeletal/extremity: ROM: intact in all extremities. 16:40 Skin: Appearance: Color: normal in color. 16:40 Neuro: Orientation: is normal, Mentation: is normal, Memory: is normal. 16:40 Psych: Behavior/mood is pleasant, cooperative. Vital Signs: 16:39 BP 126 / 75; Pulse 78; Resp 16; Temp 97.6; Pulse Ox 100% on R/A; Weight 73.48 kg; hb Height 5 ft. 10 in. (177.80 cm); Pain 0/10; 16:39 Body Mass Index 23.24 (73.48 kg, 177.80 cm) hb MDM: 16:46 Patient medically screened. [facility] 18:32 Data reviewed: vital signs, nurses notes. Counseling: I had a detailed discussion with jessica the patient and/or guardian regarding: the historical points, exam findings, and any diagnostic results supporting the discharge/admit diagnosis, lab results, radiology results, the need for outpatient follow up, to return to the emergency department if symptoms worsen or persist or if there are any questions or concerns that arise at home. ED course: Patient is alert and non toxic in appearance in the ED. Patient was advised to follow up with GI for reevaluation and otherwise given strict return precautions. Patient understood and agrees with the plan of care. . 02/24 16:47 Order name: Basic Metabolic Panel [facility] 02/24 16:47 Order name: CBC with Diff; Complete Time: 17:23 [facility] 02/24 16:47 Order name: Creatinine for Radiology; Complete Time: 18:16 [facility] 02/24 16:47 Order name: Hepatic Function; Complete Time: 18:16 [facility] 02/24 16:47 Order name: Lipase; Complete Time: 18:16 [facility] 02/24 16:47 Order name: Type And Screen; Complete Time: 18:16 [facility] 02/24 16:40 Order name: Gown patient; Complete Time: 16:41 [facility] 02/24 16:47 Order name: IV Saline Lock; Complete Time: 17:03 [facility] 02/24 16:47 Order name: Labs collected and sent; Complete Time: 17:03 [facility] 02/24 16:47 Order name: CT Abd/Pelvis - IV Contrast Only; Complete Time: 18:16 [facility] 02/24 16:47 Order name: Basic Metabolic Panel; Complete Time: 18:16 EDMS Administered Medications: No medications were administered Disposition: 02/25 09:17 Co-signature as Attending Physician, Ronaldo Cline MD I agree with the assessment and kdr plan of care. Disposition: 02/24/19 18:39 Discharged to Home. Impression: Lower GI Bleeding. - Condition is Stable. - Discharge Instructions: Rectal Bleeding. - Prescriptions for Anusol- HC 25 mg Rectal Suppository - insert 1 suppository by RECTAL route every 12 hours As needed; 20 suppository. - Medication Reconciliation Form, Thank You Letter, Antibiotic Education, Prescription Opioid Use form. - Follow up: Raymon Rivera MD; When: 2 - 3 days; Reason: Recheck today's complaints, Continuance of care, Re-evaluation by your physician. Signatures: Dispatcher [employer] EDMS Ronaldo Cline MD MD [facility] Andrey Mosqueda PA PA [facility] Enrike Rosenbaum RN RN la1 Rosalinda Morales RN RN Corrections: (The following items were deleted from the chart) 02/24 18:57 18:39 02/24/2019 18:39 Discharged to Home. Impression: Lower GI Bleeding. Condition is la1 Stable. Forms are Medication Reconciliation Form, Thank You Letter, Antibiotic Education, Prescription Opioid Use. Follow up: Raymon Rivera; When: 2 - 3 days; Reason: Recheck today's complaints, Continuance of care, Re-evaluation by your physician. [facility]
--- NOTE | 2019-02-24 18:40 | ER ---
Nurse's Notes [facility] Name: Hakeem Bundy Age: 39 yrs Sex: Male : 1980 Arrival Date: 02/24/2019 Time: 16:22 Bed 24 Private MD: Mario Monsalve Diagnosis: Lower GI Bleeding Presentation: 02/24 16:37 Presenting complaint: Painless bright red rectal bleeding this morning, dark red hb bleeding this afternoon. Transition of care: patient was not received from another setting of care. Onset of symptoms was February 24, 2019. Risk Assessment: Do you want to hurt yourself or someone else? Patient reports no desire to harm self or others. Initial Sepsis Screen: Does the patient meet any 2 criteria? No. Patient's initial sepsis screen is negative. Does the patient have a suspected source of infection? No. Patient's initial sepsis screen is negative. Care prior to arrival: None. 16:37 Method Of Arrival: Ambulatory hb 16:37 Acuity: TESS 3 hb Historical: - Allergies: 16:38 No Known Allergies; hb - Home Meds: 16:38 Cialis Oral [Active]; Cipro Oral [Active]; Flomax Oral [Active]; hb Hydrocodone-Acetaminophen Oral [Active]; Tylenol #3 Oral [Active]; - PMHx: 16:38 Erectile Dysfunction; Kidney stones; hb - Immunization history:: Adult Immunizations up to date. - Social history:: Smoking status: Patient/guardian denies using tobacco. - Ebola Screening: : No symptoms or risks identified at this time. Screenin:21 Abuse screen: Denies threats or abuse. Nutritional screening: No deficits noted. la1 Tuberculosis screening: No symptoms or risk factors identified. Fall Risk None identified. Assessment: 17:20 General: Appears in no apparent distress. Behavior is calm, cooperative. Pain: Denies la1 pain. Neuro: Level of Consciousness is awake, alert, obeys commands, Oriented to person, place, time, situation. Cardiovascular: Patient's skin is warm and dry. Respiratory: Airway is patent Respiratory effort is even, unlabored, Respiratory pattern is regular, symmetrical, Breath sounds are clear bilaterally. GI: Abdomen is round Bowel sounds present X 4 quads. Abd is soft and non tender X 4 quads. Reports rectal bleeding, bloody stool. : No signs and/or symptoms were reported regarding the genitourinary system. Vital Signs: 16:39 BP 126 / 75; Pulse 78; Resp 16; Temp 97.6; Pulse Ox 100% on R/A; Weight 73.48 kg; hb Height 5 ft. 10 in. (177.80 cm); Pain 0/10; 16:39 Body Mass Index 23.24 (73.48 kg, 177.80 cm) hb ED Course: 16:22 Patient arrived in ED. as 16:23 Mario Monsalve MD is Private Physician. as 16:38 Triage completed. hb 16:39 Arm band placed on. hb 16:40 Andrey Mosqueda PA is PHCP. [facility] 16:40 Ronaldo Cline MD is Attending Physician. [facility] 16:43 Caity Hunt, DINO is Primary Nurse. 16:50 Radiology exam delayed due to lab results not completed at this time. (BUN/Creatinine) ka IV insertion attempt and/or patient not having appropriate IV at this time. 17:03 Type And Screen Sent. rv 17:04 Basic Metabolic Panel Sent. rv 17:04 CBC with Diff Sent. rv 17:04 Creatinine for Radiology Sent. rv 17:04 Hepatic Function Sent. rv 17:04 Lipase Sent. rv 17:04 Basic Metabolic Panel Sent. rv 17:21 Patient has correct armband on for positive identification. la1 17:21 No provider procedures requiring assistance completed. la1 17:27 Radiology exam delayed due to lab results not completed at this time. (BUN/Creatinine). vm2 17:56 CT Abd/Pelvis - IV Contrast Only In Process Unspecified. EDMS 18:33 Raymon Rivera MD is Referral Physician. [facility] Administered Medications: No medications were administered Outcome: 18:39 Discharge ordered by . [facility] 18:57 Discharged to home ambulatory. la1 18:57 Condition: stable 18:57 Discharge instructions given to patient, Instructed on discharge instructions, follow up and referral plans. medication usage, Demonstrated understanding of instructions, follow-up care, medications, Prescriptions given X 1. 18:57 Patient left the ED. la1 Signatures: Dispatcher [employer] EDMS Andrey Mosqueda PA PA jmm Martinez, Amelia as Smirch, Shelby, RN RN Enrike Rosenbaum RN RN la1 eRema Ybarra Heather, RN RN Anna Ann [facility] Saud Krishnan, RN RN rv
[2019-02-24 19:02] VITALS: BP 126/75; TEMP 97.6; O2SAT 100
== END 2019-02-24 18:57 | disposition home or self-care (01) ==
LOC: ER 16:21
DX: K62.5 Hemorrhage of anus and rectum (principal); Z87.442 Personal history of urinary calculi
CPT/HCPCS: 85025; 80048; 36415; 86900; 86850; 86901; 80076; 83690; 74177; 99283; Q9967

== ENCOUNTER 2022-11-11 18:52 | Emergency (ER) | payer BC ==
[2022-11-11] MEDS ORDERED: ACETAMINOPHEN 325 MG TABLET ONE (19:28)
[2022-11-11] MEDS ORDERED: IBUPROFEN 400 MG TAB ONE (19:28)
--- NOTE | 2022-11-11 19:30 | RAD REPORT ---
EXAM DESCRIPTION: RAD - Finger-Thumb Right - 11/11/2022 7:20 pm CLINICAL HISTORY: PAIN COMPARISON: No comparisons FINDINGS/IMPRESSION: No acute fracture. No malalignment. No significant focal degenerative changes.
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
[2022-11-11 21:41] VITALS: BP 151/92; TEMP 98; O2SAT 96
== END 2022-11-11 20:28 | disposition home or self-care (01) ==
LOC: ER 18:52
DX: S63.681A Other sprain of right thumb, initial encounter (principal)
CPT/HCPCS: 99284

== ENCOUNTER 2024-02-22 21:52 | Emergency (ER) | payer BC ==
--- NOTE | 2024-02-22 22:15 | ER ---
Nurse's Notes [facility] Name: Hakeem Bundy Age: 44 yrs Sex: Male : 1980 Arrival Date: 02/22/2024 Time: 21:52 Bed 8 Private MD: Diagnosis: Cutaneous abscess of face Presentation: 02/21 22:10 Chief complaint: Patient states: last night had a knot on the left side of my jaw and vc1 it kept getting bigger. I squeezed it and it popped, but it still is swollen and hurts pretty bad. Coronavirus screen: Client denies travel out of the [place] in the last 14 days. At this time, the client does not indicate any symptoms associated with coronavirus-19. Ebola Screen: Patient negative for fever greater than or equal to 101.5 degrees Fahrenheit, and additional compatible Ebola Virus Disease symptoms Patient denies exposure to infectious person. Patient denies travel to an Ebola-affected area in the 21 days before illness onset. No symptoms or risks identified at this time. Initial Sepsis Screen: Does the patient meet any 2 criteria? No. Patient's initial sepsis screen is negative. Does the patient have a suspected source of infection? No. Patient's initial sepsis screen is negative. Risk Assessment: Do you want to hurt yourself or someone else? Patient reports no desire to harm self or others. Onset of symptoms was February 21, 2024. 22:10 Method Of Arrival: Ambulatory vc1 22:10 Acuity: TESS 4 vc1 Triage Assessment: 22:13 General: Appears in no apparent distress. uncomfortable, Behavior is calm, cooperative, vc1 appropriate for age. Pain: Complains of pain in left jaw Pain does not radiate. Pain currently is 10 out of 10 on a pain scale. EENT: No deficits noted. No signs and/or symptoms were reported regarding the EENT system. Neuro: Level of Consciousness is awake, alert, obeys commands, Oriented to person, place, time, situation, Appropriate for age. Cardiovascular: No deficits noted. Respiratory: Airway is patent Respiratory effort is even, unlabored, Respiratory pattern is regular, symmetrical. Derm: Abscess located on left jaw has purulent drainage, was lanced by patient prior to arrival. Historical: - Allergies: 22:12 No Known Allergies; vc1 - Home Meds: 22:12 Cialis Oral [Active]; Cipro Oral [Active]; Flomax Oral [Active]; vc1 Hydrocodone-Acetaminophen Oral [Active]; - PMHx: 22:12 Erectile Dysfunction; Kidney stones; vc1 - PSHx: 22:12 None; vc1 - Immunization history:: Client reports having NOT received the Covid vaccine. - Infectious Disease History:: Denies. - Social history:: Smoking status: Reported history of juuling and/or vaping. Screenin:13 Abuse screen: Denies threats or abuse. Nutritional screening: No deficits noted. vc1 Tuberculosis screening: No symptoms or risk factors identified. 22:38 [facility] ED Fall Risk Assessment (Adult) History of falling in the last 3 months, dd2 including since admission No falls in past 3 months (0 pts) Confusion or Disorientation No (0 pts) Intoxicated or Sedated No (0 pts) Impaired Gait No (0 pts) Mobility Assist Device Used No (0 pt) Altered Elimination No (0 pt) Score/Fall Risk Level 0 - 2 = Low Risk Oriented to surroundings, Maintained a safe environment, Educated pt \T\ family on fall prevention, incl call for assistance when getting out of bed, Assessed \T\ reinforced patient's understanding of fall precautions, Hourly rounding (assess needs \T\ fall precautionary measures) done. Assessment: 22:38 Reassessment: SEE TRIAGE ASSESSMENT FOR FULL ASSESSMENT. dd2 Vital Signs: 22:10 BP 128 / 91; Pulse 99; Resp 15; Temp 99.4; Pulse Ox 99% ; Weight 72.57 kg; Height 5 ft. vc1 9 in. ; Pain 10/10; 22:38 BP 135 / 96; Pulse 100; Resp 16; Pulse Ox 100% ; dd2 22:10 Body Mass Index 23.63 (72.57 kg, 175.26 cm) vc1 22:10 Pain Scale: Adult vc1 [place] Coma Score: 22:38 Eye Response: spontaneous(4). Motor Response: obeys commands(6). Verbal Response: dd2 oriented(5). Total: 15. ED Course: 21:55 Patient arrived in ED. im 22:02 Kaylah Gomez RN is Primary Nurse. al5 22:03 Koko Winters DO is Attending Physician. ms3 22:12 Triage completed. vc1 22:13 Gary Tarango DO is Referral Physician. ms3 22:13 Arm band placed on right wrist. vc1 22:38 Patient has correct armband on for positive identification. Bed in low position. Call dd2 light in reach. Provided Education on: MEDICATIONS, CALL LIGHT. Client placed on continuous cardiac and pulse oximetry monitoring. NIBP monitoring applied. Door closed. Noise minimized. Verbal reassurance given. 22:38 No provider procedures requiring assistance completed. IV discontinued. Patient dd2 maintains SpO2 saturation greater than 95% on room air. Administered Medications: 22:37 Drug: traMADol PO 50 mg PO once Route: PO; dd2 22:47 Follow up: Response: No adverse reaction dd2 22:37 Drug: Trimethoprim-Sulfamethoxazole PO (160 mg-800 mg (DS) 1 tablet PO once Route: PO; dd2 22:47 Follow up: Response: No adverse reaction dd2 Medication: 22:38 VIS not applicable for this client. dd2 Outcome: 22:14 Discharge ordered by MD. ms3 22:47 Discharged to home ambulatory, dd2 22:47 Condition: stable 22:47 Discharge instructions given to patient, Instructed on discharge instructions, follow up and referral plans. medication usage, Demonstrated understanding of instructions, follow-up care, medications, Prescriptions given X 1, 22:50 Patient left the ED. dd2 Signatures: Koko Winters DO DO ms3 Tracy Jackman RN RN vc1 Magui Contreras Amanda, RN RN al5 TEQUILA MASSEY RN RN dd2
--- NOTE | 2024-02-22 22:15 | EDPHYS ---
Physician Documentation [facility] Name: Hakeem Bundy Age: 44 yrs Sex: Male : 1980 Arrival Date: 02/22/2024 Time: 21:52 Bed 8 Private MD: ED Physician Koko Winters HPI: 02/21 23:05 This 44 yrs old Male presents to ER via Ambulatory with complaints of Cyst - on face. ms3 23:05 44-year-old male with past medical history of erectile dysfunction, kidney stones ms3 presents to the emergency department for cyst on his left face that began last night. Patient notes the area to be in severe pain that he rates a 10/10. Patient states he was able to squeeze the area and express fluid from the area. Patient states he took 975 mg Tylenol 2 hours prior to arrival. Patient denies any alleviating or inciting factors. Historical: - Allergies: 22:12 No Known Allergies; vc1 - Home Meds: 22:12 Cialis Oral [Active]; Cipro Oral [Active]; Flomax Oral [Active]; vc1 Hydrocodone-Acetaminophen Oral [Active]; - PMHx: 22:12 Erectile Dysfunction; Kidney stones; vc1 - PSHx: 22:12 None; vc1 - Immunization history:: Client reports having NOT received the Covid vaccine. - Infectious Disease History:: Denies. - Social history:: Smoking status: Reported history of juuling and/or vaping. ROS: 23:05 Constitutional: Negative for fever, and chills. Neck: Negative for injury, pain, and ms3 swelling, Cardiovascular: Negative for chest pain, and palpitations. Respiratory: Negative for shortness of breath, cough, wheezing, and pleuritic chest pain, Abdomen/GI: Negative for abdominal pain, nausea, vomiting, diarrhea, and constipation, MS/Extremity: Negative for injury and deformity, 23:05 Skin: Positive for abscess, Exam: 23:05 Constitutional: This is a well developed, well nourished patient who is awake, alert, ms3 and in no acute distress. Head/Face: Normocephalic, atraumatic. Chest/axilla: Normal chest wall appearance and motion. Nontender with no deformity. Cardiovascular: Regular rate and rhythm with a normal S1 and S2. No gallops, murmurs, or rubs. Normal PMI, no JVD. No pulse deficits. Respiratory: Lungs have equal breath sounds bilaterally, clear to auscultation and percussion. No rales, rhonchi or wheezes noted. No increased work of breathing, no retractions or nasal flaring. Abdomen/GI: Soft, non-tender, with normal bowel sounds. No distension or tympany. No guarding or rebound. No evidence of tenderness throughout. 23:05 Skin: abscess, that is moderate sized, of the left jaw, with drainage, with surrounding cellulitis, that is moderate, Vital Signs: 22:10 BP 128 / 91; Pulse 99; Resp 15; Temp 99.4; Pulse Ox 99% ; Weight 72.57 kg; Height 5 ft. vc1 9 in. ; Pain 10/10; 22:38 BP 135 / 96; Pulse 100; Resp 16; Pulse Ox 100% ; dd2 22:10 Body Mass Index 23.63 (72.57 kg, 175.26 cm) vc1 22:10 Pain Scale: Adult vc1 [place] Coma Score: 22:38 Eye Response: spontaneous(4). Motor Response: obeys commands(6). Verbal Response: dd2 oriented(5). Total: 15. MDM: 22:13 Medical Screening Exam initiated ms3 23:05 Differential diagnosis: abscess, cellulitis. Data reviewed: vital signs, nurses notes, ms3 and as a result, I will discharge patient. I considered the following discharge prescriptions or medication management in the emergency department Medications were administered in the Emergency Department. See MAR. Counseling: I had a detailed discussion with the patient and/or guardian regarding the historical points, exam findings, and any diagnostic results supporting the discharge/admit diagnosis, the need for outpatient follow up, to return to the emergency department if symptoms worsen or persist or if there are any questions or concerns that arise at home. Special discussion: I discussed with the patient/guardian in detail that at this point there is no indication for admission to the hospital. It is understood, however, that if the symptoms persist or worsen the patient needs to return immediately for re-evaluation. ED course: Patient with drainage from abscessed area. Discussed with patient incision and drainage to open the area to allow continuous drainage and patient declines. Patient given Bactrim DS in the emergency department and a prescription for Bactrim DS 1 p.o. twice daily. Patient understands and agrees with plan to follow-up with primary care physician in 2 to 3 days. Return precautions discussed include fevers, worsening symptoms, or any other concerns.. Administered Medications: 22:37 Drug: traMADol PO 50 mg PO once Route: PO; dd2 22:47 Follow up: Response: No adverse reaction dd2 22:37 Drug: Trimethoprim-Sulfamethoxazole PO (160 mg-800 mg (DS) 1 tablet PO once Route: PO; dd2 22:47 Follow up: Response: No adverse reaction dd2 Disposition Summary: 02/22/24 22:14 Discharge Ordered Notes: Location: Home ms3 Condition: Stable ms3 Diagnosis - Cutaneous abscess of face ms3 Followup: ms3 - With: Gayr Tarango DO - When: 2 - 3 days - Reason: Recheck today's complaints Discharge Instructions: - Discharge Summary Sheet ms3 - Skin Abscess ms3 Forms: - Medication Reconciliation Form ms3 - Antibiotic Education ms3 - Prescription Opioid Use ms3 - Patient Portal Instructions ms3 - Leadership Thank You Letter ms3 Prescriptions: - Bactrim DS 800-160 mg Oral Tablet - take 1 tablet ORAL route every 12 hours for 7 days; 14 tablet; Refills: 0, ms3 Product Selection Permitted Signatures: Koko Winters DO DO ms3 Tracy Jackman RN RN vc1 TEQUILA MASSEY RN RN dd2
[2024-02-22] MEDS ORDERED: TRAMADOL HCL 50 MG TAB ONE (22:32)
[2024-02-22] MEDS ORDERED: SMZ./TMP. 800/160 MG TABLET ONE (22:32)
[2024-02-23 03:48] VITALS: TEMP 99.4
[2024-02-23 03:49] VITALS: BP 135/96; O2SAT 100
== END 2024-02-22 22:50 | disposition home or self-care (01) ==
LOC: ER 21:52
DX: L02.01 Cutaneous abscess of face (principal)
CPT/HCPCS: 99283